=== PATIENT | female | born 1930 | race Caucasian/White ===

== ENCOUNTER → 2019-04-22 | Outpatient (CLI) | payer MEDICARE, BC ==
[~2019-04-22] MED LIST: DIGO0.123 PO; ELIQ2.5T PO; PERCOCET PO; TOPR25TA PO
--- NOTE | 2019-04-22 14:24 | REP ---
REASON FOR EXAM: Pain after trauma. Assess for possible fracture. I cannot accurately assess the inferior humeral head cortex due to its unchanged low position in the glenoid on both internal and external rotated views. I cannot rule out a humeral head fracture. Degenerative changes are seen involving the glenohumeral joint and the acromioclavicular joint. There is a central venous catheter tip seen in the superior vena cava. IMPRESSION: The exam limitations as described above. CT is recommended. Electronically Signed by Chiki Gardner DO 04/22/2019 03:29 P
== END ==
LOC: M RAD 12:24
PROVIDERS: ATTEND Internal Medicine Medical Oncology
DX: C54.1 Malignant neoplasm of endometrium (principal)

== ENCOUNTER → 2019-05-01 | Outpatient (CLI) | payer MEDICARE, BC ==
[~2019-05-01] MED LIST changes: +GASTROGRAFIN SOLUTION 30ML (Q9963) As Ordered ONE; +ISOVUE-370 76% 100ML VIAL (Q9967) As Ordered ONE
--- NOTE | 2019-05-01 12:45 | REP ---
Clinical: Endometrial carcinoma. Restaging. Technique: Axial contrast enhanced images from the thoracic inlet to the upper abdomen with coronal and sagittal re-formations using 100 ml Isovue 370 intravenous contrast material. Comparison: None. Findings: The lung briceño are well-aerated and demonstrate scattered chronic age related changes. No focal consolidation, nodule or mass lesion identified. No pleural effusion. No pneumothorax. Tracheobronchial tree is patent. No significant adenopathy. Further evaluation of the mediastinum demonstrates normal thoracic aorta, pulmonary vasculature and heart/pericardium. No cardiomegaly or pericardial effusion. Musculoskeletal structures are intact. Impression: No obvious acute mediastinal or pleuroparenchymal process. No evidence for metastatic disease. Electronically Signed by Kishor Hunter MD 05/01/2019 12:37 P
--- NOTE | 2019-05-01 12:49 | REP ---
Clinical: Endometrial carcinoma. Restaging. Technique: Axial contrast enhanced images from the lung bases to the pubic symphysis using oral (per protocol) and 100 ml Isovue 370 intravenous contrast material with coronal and sagittal re-formations. Comparison: None. Findings: Liver, spleen, pancreas, and bilateral adrenal glands are normal. Left kidney includes 1.2 cm simple cyst. Right kidney appears atrophic with cortical scarring. Cholelithiasis noted without acute cholecystitis. The enteric system is without obstruction or acute inflammatory process. Normal terminal ileum and cecum are identified in the right lower quadrant. Pelvis demonstrates normal bladder and evidence of prior hysterectomy. No ascites. No free air. No adenopathy. No obvious mass lesion or metastatic foci are appreciated. Abdominal aorta without aneurysm or dissection. Musculoskeletal structures demonstrate degenerative changes without abnormality. Impression: 1. Chronic renal changes. 2. Cholelithiasis. 3. No acute abdominopelvic pathology appreciated. 4. No evidence for recurrence or metastatic disease. Electronically Signed by Kishor Hunter MD 05/01/2019 12:41 P
--- NOTE | 2019-05-01 14:45 | REP ---
WHOLE BODY BONE SCAN: Following the intravenous administration of 22 mCi of technetium 99m MDP, patient's whole body is imaged in the anterior and posterior projections with additional oblique and lateral views obtained. There appears to be mild arthritic uptake at the shoulders bilaterally as well as in the cervical spine region. There appears to be arthritic uptake at the left ankle and foot as well as both knees. There is no compelling scintigraphic evidence of osseous metastases of the axial and appendicular skeleton. Renal and bladder activity are seen. IMPRESSION: Scattered arthritic uptake with no compelling scintigraphic evidence of osseous metastases. Electronically Signed by Gray Wen MD 05/01/2019 04:34 P
== END ==
LOC: M RAD 10:12
PROVIDERS: ATTEND Internal Medicine Medical Oncology
DX: C54.1 Malignant neoplasm of endometrium (principal)
CPT/HCPCS: 71260; 74177; 78306; A9503; Q9963; Q9967

== ENCOUNTER → 2019-05-20 | Outpatient (CLI) | payer MEDICARE, BC ==
[~2019-05-20] MED LIST changes: -GASTROGRAFIN SOLUTION 30ML (Q9963) As Ordered ONE; -ISOVUE-370 76% 100ML VIAL (Q9967) As Ordered ONE
--- NOTE | 2019-05-20 19:04 | REP ---
PET/CT: History: Restaging endometrial carcinoma. Comparisons: Comparison CT study chest abdomen pelvis May 01, 2019. Comparison bone scan May 01, 2019. TECHNIQUE: 58 minutes following the intravenous injection of a 7.23 mCi dose of F-18 FDG, three-dimensional PET scintigraphy is acquired from the skull base to the proximal thighs. Triplanar noncontrast CT scanning is acquired through the same anatomic range for attenuation correction, and image registration with scan parameters optimized to minimize radiation exposure to the patient. PET scintigraphy and CT datasets were fused and displayed on a workstation with multiplanar and projection display capability. PET/CT Findings: Head and neck soft tissues are unremarkable. There is no abnormal hilar or mediastinal hypermetabolic uptake. No abnormal pulmonary parenchymal hypermetabolic uptake is appreciated. No pulmonary nodule or mass lesion is visible. In the abdomen and pelvis, there is no abnormal uptake in the liver or spleen. Cholelithiasis is noted. No abnormal adrenal uptake is seen. Right kidney is somewhat atrophic and malrotated. There is hypermetabolic left periaortic adenopathy. In addition hypermetabolic lymph node uptake is seen in the left common iliac, and several nodes in the left internal iliac region. The largest of these internal iliac nodes measures 1.5 cm in greatest diameter. The left periaortic nodes measure 1.4 to 1.5 cm. Maximum standard uptake value in these hypermetabolic nodes ranges from 5.08-10.24. No other abdominal or pelvic hypermetabolic uptake. Incidental note is made of calcifications in the urinary bladder consistent with bladder calculi. Cholelithiasis is also present. Impression: There is hypermetabolic left pelvic and retroperitoneal periaortic lymphadenopathy. No other abnormal hypermetabolic uptake is seen. Electronically Signed by Erick Coker MD 05/21/2019 08:10 A
== END ==
LOC: M PLARAD 12:13
PROVIDERS: ATTEND Internal Medicine Medical Oncology
DX: C54.1 Malignant neoplasm of endometrium (principal)
CPT/HCPCS: 78815; A9552

== ENCOUNTER → 2019-06-10 | Outpatient (CLI) | payer MEDICARE, BC ==
[~2019-06-10] MED LIST changes: +NEUR100C PO; +PERC10TA26 PO
--- NOTE | 2019-06-11 22:57 | ECHO ---
DATE OF PROCEDURE: 06/10/2019 Date of : 1930 Age: 89 REFERRING PHYSICIAN: Alicia Salmeron MD PATIENT LOCATION: Outpatient. REASON FOR ECHOCARDIOGRAM: Chemotherapy drug monitoring. REASON FOR STUDY Chemotherapy drug monitoring. 2D MEASUREMENTS: IVS: 1.1 cm LV: 2.8 cm LVPW: 1.0 cm LA: 3.2 cm Aorta: 2.7 cm RV: 3.5 cm IVC: 1.5 cm DOPPLER MEASUREMENTS: Peak velocity across the aortic valve: 1.2 m/s Peak velocity across the LVOT: 1.0 m/s Mitral E: 0.8, Mitral A: 1.1 with a ratio of 0.7 Maximum tricuspid valve velocity: 2.4 m/s 2D COMMENTS: 1. Normal left ventricular size, wall thickness but with a moderately depressed global left ventricular systolic function. The estimated left ventricular systolic ejection fraction is 35-40%. 2. Normal left atrium. Normal right atrium and right ventricle. 3. The atrial septum appeared to be normal without evidence of defect or shunt. 4. Normal aortic root. 5. Mildly calcified aortic valve with normal leaflet excursion. Mildly calcified mitral annulus with normal anterior mitral leaflet motion. Normal tricuspid valve and pulmonic valve. The proximal pulmonary artery branches also appeared to be normal in limited views. 6. The inferior vena cava was normal in size, central venous pressure is most likely normal. DOPPLER: Doppler detects mild mitral regurgitation and mild tricuspid regurgitation. The calculated pulmonary artery systolic pressure varies between 30-40 mmHg. Abnormal relaxation pattern was noted across the mitral valve annulus consistent with features of grade 1 left ventricular diastolic dysfunction. IMPRESSION 1. Moderate global left ventricular systolic dysfunction. There are features of left ventricular diastolic dysfunction manifested by abnormal relaxation. 2. Aortic valve sclerosis without stenosis or aortic regurgitation. 3. Mitral annulus calcification with mild mitral regurgitation. 4. Mild tricuspid regurgitation with mild pulmonary hypertension. 5. The global longitudinal strain was reported to be 10.9%, patient is at a higher risk to develop heart failure. MTDD
== END ==
LOC: M CARPUL 10:08
PROVIDERS: ATTEND Internal Medicine Medical Oncology
DX: C54.1 Malignant neoplasm of endometrium (principal); Z79.899 Other long term (current) drug therapy; I08.3 Combined rheumatic disorders of mitral, aortic and tricuspid valves